=== PATIENT | female | born 1990 | race Caucasian/White ===

== ENCOUNTER 2019-10-24 08:00 | Outpatient (CLI) | payer OTHER ==
[2019-10-24 20:27] LABS: CANDIDA GROUP DNA POSITIVE (NEGATIVE); CANDIDA KRUSEI DNA NEGATIVE (NEGATIVE); TRICHOMONAS VAGINALIS DNA NEGATIVE (NEGATIVE)
== END 2019-10-24 23:59 | disposition home or self-care (01) ==
LOC: LAB.R 08:00
PROVIDERS: ATTEND Obstetrics & Gynecology
DX: N76.0 Acute vaginitis (principal)
CPT/HCPCS: 87661; 87801

== ENCOUNTER 2020-07-15 10:45 | Outpatient (CLI) | payer OTHER ==
[2020-07-16 04:35] LABS: CANDIDA GROUP DNA POSITIVE (NEGATIVE); CANDIDA KRUSEI DNA NEGATIVE (NEGATIVE); TRICHOMONAS VAGINALIS DNA NEGATIVE (NEGATIVE)
== END 2020-07-15 23:59 | disposition home or self-care (01) ==
LOC: LAB.R 10:45
PROVIDERS: ATTEND Obstetrics & Gynecology
DX: N76.0 Acute vaginitis (principal)
CPT/HCPCS: 87661; 87801